=== PATIENT | female | born 1935 | race Caucasian/White ===

== ENCOUNTER 2017-04-11 12:36 | Emergency (ER) | payer OTHER ==
--- NOTE | 2017-04-11 12:46 | PDOC ---
History of Present Illness - General Chief Complaint: Ingestion Stated Complaint: swallowed unknown pill Time Seen by Provider: 04/11/17 12:39 - History of Present Illness Initial Comments: 04/11/17 18:54 Chief complaint: Accidental medication ingestion History of present illness: History was obtained from the residential facility, specifically Tana, the patient's nurse on the dementia unit at the [facility]. The patient was found walking around the [place] chewing on something. The nursing staff at the patient open her mouth and removed several pill fragments from her mouth. The patient had no access to bottles of medication and the only access would've been to single-dose patient dispensed other patients. The staff states that her behavior is status quo, with no notable change in behavior and no obvious symptoms Review of systems: Patient with severe dementia, unable to provide reliable information Past medical history, social history family history reviewed from the old record , noncontributory to this illness Physical exam: Awake, combative, no depressed mental status, no depressed respiratory status Afebrile, vital signs normal Head atraumatic. PERRLA, ENT clear Neck supple without bruit mass or nodes Chest clear CV regular without murmur rub or gallop Abdomen benign Neurological no focal deficits are apparent to cooperation is limited Extremities no CCE Skin clear, no rash, adequate turgor and wet mucous membranes Impression: Due to limited access, the patient have ingested more than a few pills. EKG, labs, and physical exam show no significant abnormalities. Prolonged observation revealed no change in mental status, respiratory status, or cardiac status. Plan: Discharged to facility with increased observation and limited access to medication as discussed with the staff. Past History - Past Medical History Allergies/Adverse Reactions: Allergies Allergy/AdvReac Type Severity Reaction Status Date / Time No Known Allergies Allergy Verified 04/11/17 12:51 Home Medications: Ambulatory Orders Atorvastatin Ca [Lipitor] 20 mg PO HS 09/13/16 Cyanocobalamin [Vitamin B12 -] 1,000 mcg PO DAILY 09/13/16 Dextromethorphan HBr/Quinidine [Nuedexta 20-10 mg Capsule] 1 each PO BID Risperidone 1 mg PO DAILY 09/13/16 Venlafaxine HCl ER [Effexor Xr -] 75 mg PO DAILY 09/13/16 Atorvastatin Ca [Lipitor] 20 mg PO HS tablet 09/15/16 Atorvastatin Ca [Lipitor] 20 mg PO HS tablet 09/15/16 Cyanocobalamin [Vitamin B12 -] 1,000 mcg PO DAILY tablet 09/15/16 Oxycodone HCl/Acetaminophen [Percocet 5-325 mg Tablet] 1 combo PO Q6H #80 tablet MDD 4 09/15/16 Risperidone [Risperdal -] 1 mg PO DAILY tablet 09/15/16 Venlafaxine HCl ER [Effexor Xr -] 75 mg PO DAILY 09/15/16 Anemia: Yes Dementia: Yes Hypercholesterolemia: Yes Psychiatric Problems: Yes (DEPRESSION) - Suicide/Smoking/Psychosocial Hx Smoking History: Unknown if ever smoked Have you smoked in the past 12 months: No Hx Alcohol Use: No Drug/Substance Use Hx: No Substance Use Type: None Hx Substance Use Treatment: No ED Treatment Course - LABORATORY CBC & Chemistry Diagram: 04/11/17 13:00 04/11/17 13:00 *DC/Admit/Observation/Transfer Diagnosis at time of Disposition: Ingestion of unknown medication Qualifiers: Encounter type: initial encounter Injury intent: accidental or unintentional Qualified Code(s): T50.901A - Poisoning by unspecified drugs, medicaments and biological substances, accidental (unintentional), initial encounter - Discharge Dispostion Disposition: CUSTODIAL FACILITY Condition at time of disposition: Fair Admit: No - Patient Instructions Additional Instructions: Drink lots of fluids. Observe carefully. Make sure all medication is controlled and supervised. Return to ER if there are further symptoms.
[2017-04-11 12:51] VITALS: TEMP 98.3; BMI 22.1
[2017-04-11 14:03] LABS: ALBUMIN 3.4 g/dl (3.5-5.0); ALK PHOS 105 U/L (32-92); ANION GAP 1 (8-16); BILIRUBIN,TOTAL 0.7 mg/dl (0.2-1.0); CALCIUM 8.2 mg/dl (8.4-10.2); CO2 28 mmol/L (22-28); CPK 52 IU/L (26-192); CREATININE 0.9 mg/dl (0.6-1.3); GLUCOSE,RANDOM 88 mg/dl (74-106); SGOT/AST 16 U/L (10-42); SGPT/ALT 13 U/L (10-40)
[2017-04-11 15:03] LABS: TROPONIN I (DFP) < 0.03 ng/ml (0.03-0.50)
[2017-04-11 15:07] VITALS: BP 122/59; PULSE 65
[2017-04-11 16:37] LABS: BASOPHIL 0.7 % (0-2.0); EOSINOPHIL 1.1 % (0-4.5); MCH 29.2 pg (25.7-33.7); MCHC 33.1 g/dl (32.0-36.0); MEAN CELL VOLUME 88.2 fl (80-96); MEAN PLT VOLUME 8.4 fl (7.5-11.1); NEUTROPHILS 73.8 % (42.8-82.8); PLATELET COUNT 239 K/MM3 (134-434); RDW 15.9 % (11.6-15.6); WHITE BLOOD COUNT 7.7 K/mm3 (4.0-10.0)
--- NOTE | 2017-04-11 20:14 | EKG ---
Test Reason : Blood Pressure : / mmHG Vent. Rate : 059 BPM Atrial Rate : 059 BPM P-R Int : 166 ms QRS Dur : 086 ms QT Int : 476 ms P-R-T Axes : 051 005 057 degrees QTc Int : 471 ms SINUS BRADYCARDIA INCOMPLETE RBBB Long QTc WHEN COMPARED WITH ECG OF 13-SEP-2016 19:02, NO SIGNIFICANT CHANGE WAS FOUND REPEAT EKG IF CLINICALLY INDICATED Confirmed by AQUILES MARLEY MD ([id number]) on 04/11/2017 8:13:57 PM Referred By: THEODORA RUIZ Confirmed By:AQUILES MARLEY MD
== END 2017-04-11 17:40 ==
LOC: FER 12:36
DX: T50.901A Poisoning by unspecified drugs, medicaments and biological substances, accidental (unintentional), initial encounter (principal); X58.XXXA Exposure to other specified factors, initial encounter; Y93.89 Activity, other specified; Y92.9 Unspecified place or not applicable; E78.00 Pure hypercholesterolemia, unspecified; F32.9 Major depressive disorder, single episode, unspecified; F03.90 Unspecified dementia, unspecified severity, without behavioral disturbance, psychotic disturbance, mood disturbance, and anxiety
CPT/HCPCS: 36415; 80053; 84484; 85025; 93005; 99283-25